=== PATIENT | male | born 1955 | race Hispanic/Latino ===

== ENCOUNTER 2017-09-30 12:55 | Emergency (ER) | payer OTHER ==
--- NOTE | 2017-09-30 13:45 | EDPHYS ---
Physician Documentation [facility] Name: Myke Briones Age: 62 yrs Sex: Male : 1955 Arrival Date: 09/30/2017 Time: 12:58 Bed 14 Private MD: Gila Goel ED Physician Johnnie Clancy HPI: 09/30 15:20 This 62 yrs old Male presents to ER via Ambulatory with complaints of Redness snw of Eye. 15:20 The patient sustained None. to the left eye, caused by an unknown mechanism. Onset: The snw symptoms/episode began/occurred suddenly. Duration: the symptoms are continuous. Aggravated by nothing. Alleviated by nothing. Associated signs and symptoms: Pertinent positives: None. Patient does not utilize any form of vision correction. Severity of symptoms: At their worst the symptoms were very mild. The patient has not experienced similar symptoms in the past. The patient has not recently seen a physician. no blood thinners, no trauma, no forceful cough, sneeze. Pt with staining prior to symptoms for BM x 1.. Historical: - Allergies: 13:25 No Known Allergies; aj - Home Meds: 13:25 None [Active]; aj - PMHx: 13:25 None; aj - PSHx: 13:25 shoulder; aj - Immunization history:: Adult Immunizations up to date. - Social history:: Smoking status: Patient/guardian denies using tobacco. - Ebola Screening: : Patient negative for fever greater than or equal to 101.5 degrees Fahrenheit, and additional compatible Ebola Virus Disease symptoms Patient denies exposure to infectious person Patient denies travel to an Ebola-affected area in the 21 days before illness onset No symptoms or risks identified at this time. ROS: 15:19 Constitutional: Negative for fever, chills, and weight loss, ENT: Negative for injury, snw pain, and discharge, Neck: Negative for injury, pain, and swelling, Cardiovascular: Negative for chest pain, palpitations, and edema, Respiratory: Negative for shortness of breath, cough, wheezing, and pleuritic chest pain, Abdomen/GI: Negative for abdominal pain, nausea, vomiting, diarrhea, and constipation, Back: Negative for injury and pain, : Negative for injury, bleeding, discharge, and swelling, MS/Extremity: Negative for injury and deformity, Skin: Negative for injury, rash, and discoloration, Neuro: Negative for headache, weakness, numbness, tingling, and seizure, Psych: Negative for depression, anxiety, suicide ideation, homicidal ideation, and hallucinations. 15:19 Eyes: Positive for redness. Exam: 15:19 Constitutional: This is a well developed, well nourished patient who is awake, alert, snw and in no acute distress. Head/Face: Normocephalic, atraumatic. ENT: Nares patent. No nasal discharge, no septal abnormalities noted. Tympanic membranes are normal and external auditory canals are clear. Oropharynx with no redness, swelling, or masses, exudates, or evidence of obstruction, uvula midline. Mucous membranes moist. Neck: Trachea midline, no thyromegaly or masses palpated, and no cervical lymphadenopathy. Supple, full range of motion without nuchal rigidity, or vertebral point tenderness. No Meningismus. Chest/axilla: Normal chest wall appearance and motion. Nontender with no deformity. No lesions are appreciated. Cardiovascular: Regular rate and rhythm with a normal S1 and S2. No gallops, murmurs, or rubs. Normal PMI, no JVD. No pulse deficits. Respiratory: Lungs have equal breath sounds bilaterally, clear to auscultation and percussion. No rales, rhonchi or wheezes noted. No increased work of breathing, no retractions or nasal flaring. Abdomen/GI: Soft, non-tender, with normal bowel sounds. No distension or tympany. No guarding or rebound. No evidence of tenderness throughout. Back: No spinal tenderness. No costovertebral tenderness. Full range of motion. Skin: Warm, dry with normal turgor. Normal color with no rashes, no lesions, and no evidence of cellulitis. MS/ Extremity: Pulses equal, no cyanosis. Neurovascular intact. Full, normal range of motion. Neuro: Awake and alert, GCS 15, oriented to person, place, time, and situation. Cranial nerves II-XII grossly intact. Motor strength 5/5 in all extremities. Sensory grossly intact. Cerebellar exam normal. Normal gait. 15:19 Eyes: Conjunctiva: subconjunctival hemorrhage(s), seen in the left eye, at 9 o'clock. Vital Signs: 13:25 BP 139 / 72; Pulse 66; Resp 17; Temp 97.7; Pulse Ox 97% on R/A; Weight 88.45 kg; Height aj 5 ft. 10 in. (177.80 cm); 13:25 Body Mass Index 27.98 (88.45 kg, 177.80 cm) MDM: 13:44 Patient medically screened. snw 15:19 Data reviewed: vital signs, nurses notes. Data interpreted: Pulse oximetry: on room air snw is 97 %. Interpretation: normal. Counseling: I had a detailed discussion with the patient and/or guardian regarding: the historical points, exam findings, and any diagnostic results supporting the discharge/admit diagnosis, the presence of at least one elevated blood pressure reading (>120/80) during this emergency department visit, the need for outpatient follow up, to return to the emergency department if symptoms worsen or persist or if there are any questions or concerns that arise at home. Special discussion: Based on the history and exam findings, there is no indication for further emergent testing or inpatient evaluation. I discussed with the patient/guardian the need to see the primary care provider for further evaluation of the symptoms. Administered Medications: No medications were administered Disposition: 16:12 Co-signature as Attending Physician, Tracey KING. juan c Disposition: 09/30/17 13:44 Discharged to Home. Impression: Person with feared health complaint in whom no diagnosis is made. - Condition is Stable. - Discharge Instructions: Subconjunctival Hemorrhage. - Medication Reconciliation Form, Thank You Letter, Antibiotic Education, Prescription Opioid Use form. - Follow up: Gila Goel MD; When: 2 - 3 days; Reason: Recheck today's complaints, Continuance of care, Re-evaluation by your physician. Signatures: Izabel Eaton RN RN Tracey Cardenas FNP-C FNP-Csnw Johnnie Clancy MD MD Anastacia House RN RN tl3 Corrections: (The following items were deleted from the chart) 14:14 13:44 09/30/2017 13:44 Discharged to Home. Impression: Person with feared health tl3 complaint in whom no diagnosis is made. Condition is Stable. Discharge Instructions: Subconjunctival Hemorrhage. Forms are Medication Reconciliation Form, Thank You Letter, Antibiotic Education, Prescription Opioid Use. Follow up: Gila Goel; When: 2 - 3 days; Reason: Recheck today's complaints, Continuance of care, Re-evaluation by your physician. w
--- NOTE | 2017-09-30 13:45 | ER ---
Nurse's Notes [facility] Name: Myke Briones Age: 62 yrs Sex: Male : 1955 Arrival Date: 09/30/2017 Time: 12:58 Bed 14 Private MD: Gila Goel Diagnosis: Person with feared health complaint in whom no diagnosis is made Presentation: 09/30 13:24 Presenting complaint: Patient states: Reports redness to left eye since this AM. Denies aj pain or vision changes. No exudate noted. Transition of care: patient was not received from another setting of care. Onset of symptoms was September 30, 2017. Risk Assessment: Do you want to hurt yourself or someone else? Patient reports no desire to harm self or others. Initial Sepsis Screen: Does the patient meet any 2 criteria? No. Patient's initial sepsis screen is negative. Does the patient have a suspected source of infection? No. Patient's initial sepsis screen is negative. Care prior to arrival: None. 13:24 Method Of Arrival: Ambulatory 13:24 Acuity: MICK 5 aj Triage Assessment: 13:25 General: Appears in no apparent distress. comfortable, Behavior is calm, cooperative, aj appropriate for age. Pain: Denies pain. EENT: Reports redness to left eye. EENT: Sclera/Cornea are reddened in inner aspect of conjunctiva of left eye. Neuro: Level of Consciousness is awake, alert, obeys commands, Oriented to person, place, time, situation, Appropriate for age. Respiratory: Airway is patent Respiratory effort is even, unlabored, Respiratory pattern is regular, symmetrical. Derm: Skin is intact, is healthy with good turgor, Skin is pink, warm \T\ dry. normal. Historical: - Allergies: 13:25 No Known Allergies; aj - Home Meds: 13:25 None [Active]; aj - PMHx: 13:25 None; aj - PSHx: 13:25 shoulder; aj - Immunization history:: Adult Immunizations up to date. - Social history:: Smoking status: Patient/guardian denies using tobacco. - Ebola Screening: : Patient negative for fever greater than or equal to 101.5 degrees Fahrenheit, and additional compatible Ebola Virus Disease symptoms Patient denies exposure to infectious person Patient denies travel to an Ebola-affected area in the 21 days before illness onset No symptoms or risks identified at this time. Vital Signs: 13:25 BP 139 / 72; Pulse 66; Resp 17; Temp 97.7; Pulse Ox 97% on R/A; Weight 88.45 kg; Height aj 5 ft. 10 in. (177.80 cm); 13:25 Body Mass Index 27.98 (88.45 kg, 177.80 cm) ED Course: 12:58 Patient arrived in ED. mr 12:58 Gila Goel MD is Private Physician. mr 13:24 Triage completed. aj 13:25 Arm band placed on left wrist. Patient placed in an exam room. aj 13:30 Tracey Simons [facility]-C [facility]. snw 13:30 Johnnie Clancy MD is Attending Physician. snw 13:44 Gila Goel MD is Referral Physician. snw Administered Medications: No medications were administered Outcome: 13:44 Discharge ordered by MD. snw 14:14 Patient left the ED. tl3 Signatures: Izabel Eaton, RN Tracey Link FNP-C FNP-Ya Elizabeth ScissorsAnastacia, ARUNA VALDOVINOS tl3
== END 2017-09-30 14:14 | disposition home or self-care (01) ==
LOC: ER 12:55
DX: Z03.89 Encounter for observation for other suspected diseases and conditions ruled out (principal); Z71.1 Person with feared health complaint in whom no diagnosis is made
CPT/HCPCS: 99281

== ENCOUNTER 2021-12-08 07:31 | Day surgery (SDC) | payer OTHER ==
--- NOTE | 2021-12-03 16:13 | RAD REPORT ---
EXAM DESCRIPTION: RAD - Chest Pa And Lat (2 Views) - 12/03/2021 3:41 pm CLINICAL HISTORY: Pre op pending cholecystectomy COMPARISON: Single-view chest 12/01/2020, lateral chest 05/08/2008 TECHNIQUE: Frontal and lateral views of the chest were obtained. FINDINGS: The lungs are clear. Heart size is normal and central vasculature is within normal limit s. No pleural effusion or pneumothorax seen. No acute bony finding noted. No aortic abnormality. IMPRESSION: No acute cardiopulmonary process.
[2021-12-03 16:45] LABS: Albumin 3.6 g/dL (3.4-5.0); Bilirubin Direct 0.1 mg/dL (0-0.2); Bilirubin Total 0.5 mg/dL (0.2-1.0); Protein, Total 6.9 g/dL (6.4-8.2)
--- NOTE | 2021-12-06 18:44 | EKG ---
Test Date: 2021-12-03 Test Time: 15:26:37 [employer]: [place] MEASUREMENT RESULTS: Intervals: Rate: 56 NC: 150 QRSD: 80 QT: 426 QTc: 411 [place]: P: 70 NC: 150 QRS: 20 T: 120 INTERPRETIVE STATEMENTS: Sinus bradycardia ST & T wave abnormality, consider lateral ischemia Abnormal ECG Compared to ECG 12/01/2020 21:36:18 ST (T wave) deviation now present Possible ischemia now present Sinus rhythm no longer present Electronically Signed On 12-06-21 18:39:34 CDT by Walter Fowler
[2021-12-08] MEDS ORDERED: CEFOXITIN SODIUM 1 GM/VIAL ONE (08:01)
[2021-12-08] MEDS: Ringers Lactate 1,000 ML IV ONE ×2 (08:20→09:07)
[2021-12-08] MEDS ORDERED: propofoL 200 MG/20 ML VIAL IV ONE (08:51)
[2021-12-08] MEDS ORDERED: MIDAZOLAM HCL 2 MG/2 ML INJ ONE (08:52)
[2021-12-08] MEDS ORDERED: FENTANYL CITR 100 MCG/2 ML ONE (08:52)
[2021-12-08] MEDS ORDERED: ROCURONIUM 50 MG/5 ML VIAL IV ONE (08:52)
[2021-12-08] MEDS ORDERED: LIDOCAINE 2% MPF 5 ML VIAL ONE (08:53)
[2021-12-08] MEDS ORDERED: ONDANSETRON 4 MG/2 ML VIAL ONE (08:53)
[2021-12-08] MEDS ORDERED: KETOROLAC 30 MG/ML INJ ONE (08:53)
[2021-12-08] MEDS ORDERED: dexAMETHasone 10 MG/ML VIAL ONE (08:53)
[2021-12-08] MEDS ORDERED: BUPIVACAINE 0.5% PF 10 ML VIAL ONE (08:57)
[2021-12-08] MEDS ORDERED: NS 0.9% VIAL 10 ML ONE (09:39)
[2021-12-08] MEDS ORDERED: GLYCOPYRROLATE 0.2 MG/ML SYR ONE (10:32)
[2021-12-08] MEDS ORDERED: NEOSTIGMINE 1 MG/ML -5 ML ONE (10:32)
--- NOTE | 2021-12-08 10:51 | P.OP ---
Date of Service: 12/08/21 Preop diagnosis: Chronic cholecystitis and cholelithiasis Postop diagnosis: Same Procedure performed: Laparoscopic cholecystectomy Surgeon: Jorge Echeverria MD [employer] Tender: None Estimated blood loss: Minimal Specimen: As above Findings: As above, extensive inflammation Anesthesia: General Complications: None Drains: None Fluids and blood products: Nonapplicable Disposition: Recovery room Operative note: Patient brought to the OR and placed in supine position. General anesthesia begun. Patient prepped and draped in the usual sterile fashion. Marcaine 0.5% infiltrated locally. 15 blade used to make a 1 cm supraumbilical midline incision. Subcutaneous tissue divided and bleeding controlled cautery. Fascia identified and divided. #1 Vicryl stay suture placed. Peritoneal cavity entered with sharp and blunt dissection. 12 mm trocar placed into the peritoneal cavity under direct vision. Pneumoperitoneum established. Then 3 5 mm trochars placed under direct vision. 1 trocar placed in the epigastric region just to the right of midline. 2 trochars placed in the right subcostal region. Laparoscopy revealed extensive adhesions to the gallbladder. They were omental in nature. There were easily taken down with sharp and blunt dissection. Bleeding was controlled with cautery. The fundus was identified and retracted superiorly. The wall of the gallbladder was very thickened. Infundibulum was identified retracted inferolaterally. Cystic duct and cystic artery clearly identified with blunt dissection. Clips placed and both structures divided. Cautery used to remove the gallbladder from the liver bed. The gallbladder was somewhat intrahepatic. Bleeding of the fossa was controlled with cautery. Gallbladder was retrieved through the umbilicus via Endo Catch bag. Right upper quadrant was irrigated. Effluent was clear. There is no evidence of bleeding or bile leakage appreciated. There was however, extensive oozing during the case from the liver bed, because of the inflammation. Surgicel placed in the gallbladder fossa. This was done as a preventive measure. Then, all trochars removed under direct vision. Stay sutures tied to each other to reapproximate the fascial defect. Subcutaneous was irrigated. Bleeding controlled with cautery. 3-0 chromic used approximate subcutaneous tissue. And cristóbal used to close skin. Sterile dressing applied and patient awakened. Patient taken to recovery room in good general condition. CC: Zina Cedillo's pedro luis
[2021-12-08] MEDS ORDERED: Ringers Lactate 1,000 ML IV ONE (11:00)
[2021-12-08 11:04] VITALS: O2SAT 100
[2021-12-08 11:46] VITALS: BP 154/85; TEMP 97.3
[2021-12-08] MEDS ORDERED: HYDROCODONE/APAP 7.5/325 MG TAB ONE (11:57)
== END 2021-12-08 12:32 | disposition home or self-care (01) ==
LOC: OR 07:31
PROVIDERS: ATTEND Surgery
PROC: 0FT44ZZ Resection of Gallbladder, Percutaneous Endoscopic Approach (ICD-10-PCS; principal; 2021-12-08 09:00)
DX: K80.10 Calculus of gallbladder with chronic cholecystitis without obstruction (principal)
CPT/HCPCS: 93005; 36415; 82150; 80076; 88304; 71046; 47562; J2704; J2001; J2250; J3010; J1100; A4216; J2710; J7120 ×2; J0694; J2405

== ENCOUNTER 2022-01-08 09:42 | Emergency (ER) | payer OTHER ==
--- OUTSIDE RECORDS SUMMARY | 2022-01-08 09:45 | XMS REPORT | Continuity of Care Document ---
:1955 Author Organization [facility] t Address [address] [place] [address] Dr. Mondragon. [address] [place] [id number] Care Team Providers Name Role Phone Gila Goel Attending Clinician Unavailable Problems This patient has no known problems. Allergies, Adverse Reactions, Alerts This patient has no known allergies or adverse reactions. Medications This patient has no known medications. Procedures This patient has no known procedures. Encounters Start End Encounter Admission Attending Care Care Encounter Source Date/Time Date/Time Type Type Clinicians Facility Department ID 2021-03-10 Outpatient Gila Goel [facility] [id number] 2 Common 14:21:14 [id number] [facility] Results This patient has no known results.
[2022-01-08] MEDS ORDERED: KETOROLAC 30 MG/ML INJ ONE (10:43)
--- NOTE | 2022-01-08 11:48 | RAD REPORT ---
EXAM DESCRIPTION: RAD - Knee Left 3 View - 01/08/2022 11:25 am CLINICAL HISTORY: knee pain COMPARISON: No comparisons FINDINGS/IMPRESSION: No acute fracture. No malalignment. Patellar enthesophyte. Enthesophyte at the tibial tubercle.
--- NOTE | 2022-01-08 12:13 | EDPHYS ---
Physician Documentation [facility] Name: Myke Briones Age: 66 yrs Sex: Male : 1955 Arrival Date: 01/08/2022 Time: 09:44 Bed 12 Private MD: ED Physician Shilo Reynolds HPI: 01/08 10:08 This 66 yrs old Male presents to ER via Wheelchair with complaints of Left jmm Knee Swelling/Pain. 10:08 The patient presents with pain. Onset: The symptoms/episode began/occurred gradually, 1 jmm day(s) ago. This is a 66-year-old male with no known chronic medical conditions that presents to the emergency department with complaints of left medial knee pain which began yesterday. Patient states the day before he was walking up and down stairs but otherwise denies any type of injury. Patient denies fever. Denies previous knee issues.. Historical: - Allergies: 09:54 No Known Allergies; tw5 - Home Meds: 09:54 None [Active]; tw5 - PMHx: 09:54 None; tw5 - PSHx: 09:54 Cholecystectomy; shoulder-right; tw5 - Immunization history:: Flu vaccine is not up to date. - Social history:: Smoking status: Patient denies any tobacco usage or history of. ROS: 14:09 Constitutional: Negative for fever, chills, and weight loss, Cardiovascular: Negative jmm for chest pain, palpitations, and edema, Respiratory: Negative for shortness of breath, cough, wheezing, and pleuritic chest pain. 14:09 MS/extremity: Positive for pain. 14:09 All other systems are negative. Exam: 14:09 Constitutional: This is a well developed, well nourished patient who is awake, alert, jmm and in no acute distress. Head/Face: atraumatic. Eyes: EOMI, no conjunctival erythema appreciated ENT: Moist Mucus Membranes Neck: Trachea midline, Supple Chest/axilla: Normal chest wall appearance and motion. Cardiovascular: Regular rate and rhythm. No edema appreciated Respiratory: Normal respirations, no respiratory distress appreciated Abdomen/GI: Non distended Back: Normal ROM Skin: General appearance color normal 14:09 Neuro: Awake and alert Psych: Behavior is normal, Mood is normal, Patient is cooperative and pleasant 14:09 Musculoskeletal/extremity: Full range of motion appreciated left knee, mild tenderness to palpation of the left medial knee, compartments are soft, full dorsalis pedis pulse, mild painful passive range of motion appreciated, neurovascular intact. Vital Signs: 09:52 BP 153 / 88; Pulse 60; Resp 18; Temp 98.7(O); Pulse Ox 98% on R/A; Weight 83.01 kg; tw5 Height 5 ft. 10 in. (177.80 cm); Pain 7/10; 09:52 Body Mass Index 26.26 (83.01 kg, 177.80 cm) tw5 MDM: 10:08 Patient medically screened. [facility] 12:11 Data reviewed: vital signs, nurses notes. Counseling: I had a detailed discussion with [facility] the patient and/or guardian regarding: the historical points, exam findings, and any diagnostic results supporting the discharge/admit diagnosis, radiology results, the need for outpatient follow up, to return to the emergency department if symptoms worsen or persist or if there are any questions or concerns that arise at home. 01/08 10:09 Order name: Knee Left 3 View XRAY; Complete Time: 11:50 [facility] 01/08 12:03 Order name: Knee Immobilizer; Complete Time: 12:03 [facility] Administered Medications: 11:10 Drug: Ketorolac 30 mg Route: IM; Site: right ventrogluteal; kb3 11:40 Follow up: Response: No adverse reaction; Pain is decreased jl7 Disposition: 15:21 Co-signature as Attending Physician, Shilo Reynolds DO I was immediately available on-site ms3 in the Emergency Department for consultation in the care of the patient. Disposition Summary: 01/08/22 12:12 Discharge Ordered Location: Home [facility] Condition: Stable [facility] Diagnosis - Other internal derangements of left knee [facility] Followup: [facility] - With: Jaron Lang MD - When: 2 - 3 days - Reason: Recheck today's complaints, Continuance of care, Re-evaluation by your physician Discharge Instructions: - Discharge Summary Sheet [facility] - Acute Knee Pain, Adult [facility] Forms: - Medication Reconciliation Form [facility] - Thank You Letter [facility] - Antibiotic Education [facility] - Prescription Opioid Use [facility] Prescriptions: - Diclofenac Sodium 75 mg Oral Tablet Sustained Release - take 1 tablet by ORAL route 2 times per day; 30 tablet; Refills: 0, Product [facility] Selection Permitted - orphenadrine citrate 100 mg Oral Tablet Sustained Release - take 1 tablet by ORAL route 2 times per day As needed; 20 tablet; Refills: 0, vanesa Product Selection Permitted Signatures: Dispatcher [employer] Philipp Peñaloza PA PA jmm Sims, Marcus, DO DO ms3 Abdifatah Elisabeth tw5 Hoda Sheehan RN RN kb3 Jasiel Teran RN jl7 Corrections: (The following items were deleted from the chart) 09:55 09:54 PSHx: Shoulder; tw5 tw5 14:11 10:08 This is a 66-year-old male. vanesa alexis
--- NOTE | 2022-01-08 12:13 | ER ---
Nurse's Notes [facility] Name: Myke Briones Age: 66 yrs Sex: Male : 1955 Arrival Date: 01/08/2022 Time: 09:44 Bed 12 Private MD: Diagnosis: Other internal derangements of left knee Presentation: 01/08 09:52 Chief complaint: Patient states: "I just went to the store yesterday, when I got home I tw5 started to feel pain in my left knee. It also felt like it was swollen. I put some ice on it, but today I can hardly walk on it.". Coronavirus screen: Vaccine status: Patient reports receiving the 2nd dose of the covid vaccine. Moderna. Ebola Screen: Patient negative for fever greater than or equal to 101.5 degrees Fahrenheit, and additional compatible Ebola Virus Disease symptoms Patient denies exposure to infectious person. Patient denies travel to an Ebola-affected area in the 21 days before illness onset. Initial Sepsis Screen: Does the patient meet any 2 criteria? No. Patient's initial sepsis screen is negative. Does the patient have a suspected source of infection? No. Patient's initial sepsis screen is negative. Risk Assessment: Do you want to hurt yourself or someone else? Patient reports no desire to harm self or others. Onset of symptoms was January 07, 2022 at 12:00. 09:52 Method Of Arrival: Wheelchair tw5 09:52 Acuity: MICK 4 tw5 Triage Assessment: 09:54 General: Appears in no apparent distress. Behavior is calm, cooperative, appropriate tw5 for age. Pain: Complains of pain in left knee Pain currently is 7 out of 10 on a pain scale. Historical: - Allergies: 09:54 No Known Allergies; tw5 - Home Meds: 09:54 None [Active]; tw5 - PMHx: 09:54 None; tw5 - PSHx: 09:54 Cholecystectomy; shoulder-right; tw5 - Immunization history:: Flu vaccine is not up to date. - Social history:: Smoking status: Patient denies any tobacco usage or history of. Screenin:00 Abuse screen: Denies threats or abuse. Denies injuries from another. Nutritional jl7 screening: No deficits noted. Tuberculosis screening: No symptoms or risk factors identified. Fall Risk None identified. Vital Signs: 09:52 BP 153 / 88; Pulse 60; Resp 18; Temp 98.7(O); Pulse Ox 98% on R/A; Weight 83.01 kg; tw5 Height 5 ft. 10 in. (177.80 cm); Pain 7/10; 09:52 Body Mass Index 26.26 (83.01 kg, 177.80 cm) tw5 ED Course: 09:44 Patient arrived in ED. jj6 09:46 Philipp Damon PA is PHCP. jmm 09:46 Shilo Reynolds DO is Attending Physician. jmm 09:54 Triage completed. tw5 09:54 Arm band placed on. tw5 10:46 Jasiel Teran RN is Primary Nurse. jl7 11:27 Knee Left 3 View XRAY In Process Unspecified. EDMS 12:00 Patient has correct armband on for positive identification. jl7 12:02 Knee immobilizer applied on left knee. mm9 12:12 Jaron Lang MD is Referral Physician. [facility] 12:30 No provider procedures requiring assistance completed. IV discontinued, intact, jl7 bleeding controlled, No redness/swelling at site. Pressure dressing applied. Administered Medications: 11:10 Drug: Ketorolac 30 mg Route: IM; Site: right ventrogluteal; kb3 11:40 Follow up: Response: No adverse reaction; Pain is decreased jl7 Medication: 12:37 VIS not applicable for this client. jl7 Outcome: 12:12 Discharge ordered by MD. [facility] 12:30 Discharged to home ambulatory. jl7 12:30 Condition: stable 12:30 Discharge instructions given to patient, family, Instructed on discharge instructions, follow up and referral plans. medication usage, Demonstrated understanding of instructions, follow-up care, medications, Prescriptions given X 2. 12:39 Patient left the ED. jl7 Signatures: Dispatcher [employer] EDMS Philipp Damon PA PA Jasiel Roque RN RN jl7 Wood, Tiffany tw5 Domenica Araujo jj6 Hoda Sheehan RN RN [email or web address] Ya Simons mm9 Corrections: (The following items were deleted from the chart) 09:55 09:54 PSHx: Shoulder; tw5 tw5
[2022-01-08 12:49] VITALS: BP 153/88; TEMP 98.7; O2SAT 98
== END 2022-01-08 12:39 | disposition home or self-care (01) ==
LOC: ER 09:42
DX: M23.8X2 Other internal derangements of left knee (principal)
CPT/HCPCS: 96372; 99284